=== PATIENT | female | born 1955 | race Caucasian/White ===

== ENCOUNTER → 2018-03-22 | Outpatient (CLI) | payer OTHER, MEDICARE ==
[~2018-03-22] MED LIST: BETA.05TO TOP; Multiple Vitam1 EAC1 PO
[2018-03-24 16:09] LABS: HPV 16 Negative (Negative); HPV 18 Negative (Negative); HPV OTHER HR TYPES Positive (Negative)
== END | disposition home or self-care (01) ==
LOC: LAB 17:01 → LAB SHORT 17:01
PROVIDERS: Nurse Practitioner Women's Health
DX: Z12.4 Encounter for screening for malignant neoplasm of cervix (principal); Z91.89 Other specified personal risk factors, not elsewhere classified
CPT/HCPCS: 87624; 87625; G0123

== ENCOUNTER → 2019-03-27 | Outpatient (CLI) | payer MEDICARE, OTHER ==
[2019-03-29 14:07] LABS: HPV 16 Negative (Negative); HPV 18 Negative (Negative); HPV OTHER HR TYPES Negative (Negative)
== END | disposition home or self-care (01) ==
LOC: LAB 18:17 → LAB SHORT 18:17
PROVIDERS: Nurse Practitioner Women's Health
DX: Z12.4 Encounter for screening for malignant neoplasm of cervix (principal); Z91.89 Other specified personal risk factors, not elsewhere classified
CPT/HCPCS: 87624; G0123

== ENCOUNTER 2022-07-24 14:54 | Inpatient (IN) | payer MEDICARE ==
[~2022-07-24] VITALS: Ht 170.2 cm; Wt 76.2 kg
[2022-07-24 16:04] LABS: Source, Urine Straight Cath
[2022-07-24 16:09] LABS: BASOPHILS ABSOLUTE AUTO 0.02 K/mm3 (0.00-0.23); BASOPHILS PERCENT AUTO 0 % (0-2); EOSINOPHILS ABSOLUTE AUTO 0.02 K/mm3 (0.00-0.68); EOSINOPHILS PERCENT AUTO 0 % (0-6); Hemoglobin 15.9 g/dL (11.5-16.0); IMMATURE GRAN ABSOLUTE AUTO 0.03 K/mm3 (0.00-0.10); IMMATURE GRAN PERCENT AUTO 0 % (0-1); LYMPHOCYTES ABSOLUTE AUTO 0.97 K/mm3 (0.84-5.20); LYMPHOCYTES PERCENT AUTO 11 % (21-46); MONOCYTES ABSOLUTE AUTO 0.72 K/mm3 (0.16-1.47); MONOCYTES PERCENT AUTO 8 % (4-13); Mean Corpuscular HGB 28.3 pg (26.0-34.0); Mean Corpuscular HGB Conc 32.4 g/dL (31.5-36.5); Mean Corpuscular Volume 87 fL (80-100); Mean Platelet Volume 9.7 fL (9.1-12.4); NEUTROPHILS ABSOLUTE AUTO 6.79 K/mm3 (1.96-9.15); NEUTROPHILS PERCENT AUTO 80 % (41-73); Platelet Count 383 K/mm3 (150-400); RDW Coefficient Variation 13.7 % (11.7-14.2); RDW Standard Deviation 43.6 fL (35.1-46.3); Red Blood Cell Count 5.62 M/mm3 (3.80-5.20); White Blood Cell Count 8.55 K/mm3 (4.00-11.30)
[2022-07-24 16:10] LABS: Appearance, Urine Hazy (Clear); Blood, Urine 2+ (Neg); Color, Urine Amber (P-Yellow); Glucose Qualitative, Urine Neg (Neg); Ketones, Urine 4+ (Neg); Leukocyte Esterase, Urine 1+ (Neg); Nitrite, Urine Pos (Neg); Protein, Urine 2+ (Neg); Specific Gravity, Urine 1.025 (1.003-1.022); Urobilinogen, Urine 4+ (Normal)
[2022-07-24 16:19] LABS: Bilirubin, Urine 2+ (Neg)
[2022-07-24 16:22] LABS: Hyaline Casts 0-2 /lpf (0-2); Mucus Heavy (0-Heavy)
[2022-07-24 16:23] LABS: Amorphous Light (0-Heavy); Bacteria Many /hpf; Squamous Epithelial Cells Not Seen /hpf (Few)
[2022-07-24 16:28] LABS: Albumin/Globulin Ratio 0.7 (0.8-1.8); Bilirubin, Total 2.4 mg/dL (0.1-1.0); Bun/Creatinine Ratio 52.6 (12.0-20.0); Calcium, Blood 9.3 mg/dL (8.5-10.1); Creatinine, Blood 0.65 mg/dL (0.40-1.00); Globulin, Blood 4.4 g/dL (2.2-4.0); Potassium, Blood 3.5 mmol/L (3.5-5.5); Total Protein, Blood 7.4 g/dL (6.4-8.2)
[2022-07-24 17:27] LABS: Creatine Kinase MB 2.4 ng/mL (0.0-3.6); Creatine Kinase MB Index 0.5 (0.0-4.0)
[2022-07-24 19:00] LABS: Influenza A, PCR NEGATIVE (NEGATIVE); Influenza B, PCR NEGATIVE (NEGATIVE); Resp Syncytial Virus, PCR NEGATIVE (NEGATIVE); SARS-Cov-2 (COVID-19) PCR, MMC NEGATIVE (NEGATIVE)
[2022-07-24 19:24] LABS: Magnesium, Blood 1.9 mg/dL (1.6-2.4)
[2022-07-24 19:27] LABS: Thyroid Stimulating Hormone 1.61 uIU/mL (0.360-4.800)
[2022-07-25 06:08] LABS: Albumin, Blood 2.3 g/dL (3.4-5.0); Albumin/Globulin Ratio 0.7 (0.8-1.8); Bilirubin, Total 1.5 mg/dL (0.1-1.0); Bun/Creatinine Ratio 42.5 (12.0-20.0); Calcium, Blood 8.6 mg/dL (8.5-10.1); Creatinine, Blood 0.64 mg/dL (0.40-1.00); Globulin, Blood 3.5 g/dL (2.2-4.0); Potassium, Blood 3.3 mmol/L (3.5-5.5); Total Protein, Blood 5.8 g/dL (6.4-8.2)
[2022-07-25 06:40] LABS: Creatine Kinase MB 1.5 ng/mL (0.0-3.6); Creatine Kinase MB Index 0.5 (0.0-4.0)
[2022-07-25 08:08] LABS: Magnesium, Blood 2.1 mg/dL (1.6-2.4)
--- NOTE | 2022-07-25 19:35 | NUR ---
ADMIT NOTE/ SHIFT SUMMARY- PT ALERT TO SELF, FAMILY, ANSWERS MOST QUESTIONS APPROPRIATELY. PT WAS FOUND DOWN ON A WELFARE CHECK CALLED BY HER SISTER IN [place]. PER REPORT FROM THE ED RN THE PT SISTER HAS BEEN CALLING EVERY HOUR FOR AN UPDATE. SINCE ADMIT NO CALLS HAVE BEEN RECIEVED. ADMISSION ASSESSMENT COMPLETED, 2RN SKIN CHECK COMPLETED, PHOTOS IN CHART OF WOUNDS ON COCCYX AND LEFT LABIA. PT WAS AGREEABLE TO PHOTOS FOR THE RECORD. RN GALINA PRESENT FOR THE CONSENT AND 2 RN SKIN CHECK. PT MEDICAL Hx NOT COMPLETED WELL MED REC. NIGHT RN IS AWARE. PT IN BED, CALL LIGHT IN REACH NO S&S OF DISTRESS NOTED. BEDSIDE REPORT COMPLETED WITH NIGHT RN.
--- NOTE | 2022-07-26 04:31 | NUR ---
DISORIENTED X4; AT ONE ASSESSMENT PATIENT RESPONDED THAT SHE KNOWS SHE'S IN A HOSPITAL. UNABLE TO STATE NAME WHEN ASKED. DENIES PAIN. FOLLOWS COMMANDS AND IS GENERALLY COOPERATIVE WITH CARE. BEDREST. Q2 TURN FOR COCCYX REDNESS; FOAM DRSG CDI. INCONTINENT. UNABLE TO COMPLETE MED REC OR HEALTH HX; PATIENT IS A POOR HISTORIAN AT THIS TIME. SLEEP PROMOTED. BED ALARM SET. CALL LIGHT IN REACH; ENCOURAGED TO MAKE NEEDS KNOWN
[2022-07-26 05:34] LABS: BASOPHILS ABSOLUTE AUTO 0.02 K/mm3 (0.00-0.23); BASOPHILS PERCENT AUTO 0 % (0-2); EOSINOPHILS ABSOLUTE AUTO 0.02 K/mm3 (0.00-0.68); EOSINOPHILS PERCENT AUTO 0 % (0-6); Hematocrit 37.8 % (33.0-51.0); IMMATURE GRAN ABSOLUTE AUTO 0.02 K/mm3 (0.00-0.10); IMMATURE GRAN PERCENT AUTO 0 % (0-1); LYMPHOCYTES ABSOLUTE AUTO 0.85 K/mm3 (0.84-5.20); LYMPHOCYTES PERCENT AUTO 15 % (21-46); MONOCYTES ABSOLUTE AUTO 0.37 K/mm3 (0.16-1.47); MONOCYTES PERCENT AUTO 7 % (4-13); Mean Corpuscular HGB 29.1 pg (26.0-34.0); Mean Corpuscular HGB Conc 34.4 g/dL (31.5-36.5); Mean Corpuscular Volume 85 fL (80-100); Mean Platelet Volume 9.4 fL (9.1-12.4); NEUTROPHILS PERCENT AUTO 77 % (41-73); Platelet Count 292 K/mm3 (150-400); RDW Coefficient Variation 13.5 % (11.7-14.2); RDW Standard Deviation 42.2 fL (35.1-46.3); Red Blood Cell Count 4.47 M/mm3 (3.80-5.20); White Blood Cell Count 5.58 K/mm3 (4.00-11.30)
[2022-07-26 06:01] LABS: Bun/Creatinine Ratio 35.6 (12.0-20.0); Calcium, Blood 8.6 mg/dL (8.5-10.1); Creatinine, Blood 0.56 mg/dL (0.40-1.00); Potassium, Blood 3.5 mmol/L (3.5-5.5)
--- NOTE | 2022-07-26 17:13 | NUR ---
SHIFT SUMMARY PT AXO X1, IRRITABLE BUT COOPERATIVE WITH CARE. UP WITH SBA THOUGH PT UNSTEADY AT TIMES. PT CONTINENT/ UNCONTINENT AT TIMES. CONTINENT OF BOWEL WITH 2 LOOSE BROWN STOOL THIS SHIFT. IV PATENT AND SALINE LOCKED. MEPILEX TO COCCYX CDI. NO ACUTE CHANGES THIS SHIFT. PT'S SISTER FROM [place] CALLED AND REQUESTED THAT HOSPITALIST CALL WITH MRI RESULTS TO OMAR ELLIOTT AT [phone]. PT'S SISTER'S NAME IS IRWIN JAY WHOSE NUMBER IS [phone]. BED IN LOW POSITION, CALL LIGHT WITHIN REACH, BED ALARM ON. PHYSICAL THERAPY AND OCCUPATIONAL THERAPY WORKED WITH PATIENT, SEE NOTES.
--- NOTE | 2022-07-27 05:06 | NUR ---
ALERT TO SELF AND PLACE (KNOWS SHE'S IN A HOSPITAL). DENIES PAIN. FOLLOWS COMMANDS /GENERALLY COOPERATIVE WITH CARE. SBA TO BR. Q2 TURN ENCOURAGED FOR COCCYX REDNESS AND WOUND; FOAM DRSG CDI. REFUSING ASSESSMENT OF LEFT LABIA WOUND; BACITRACIN OINTMENT OFFERED - PATIENT DECLINED. SLEEP PROMOTED. BED ALARM SET. CALL LIGHT IN REACH; ENCOURAGED TO MAKE NEEDS KNOWN
--- NOTE | 2022-07-27 17:05 | NUR ---
END OF SHIFT SUMMARY: PATIENT DENIED PAIN DURING THE SHIFT. PATIENT IS IRRITABLE AT TIMES ABOUT HOSPITAL RULES, NOISE, AND OTHER DISCOMFORTS THAT COME WITH BEING ADMITTED. PATIENT ALLOWED ASSESSMENT OF AND CHANGING OF COCCYX DRESSING. PATIENT STEADY ON FEET, BUT DISPLAYS SHORT TERM MEMORY LOSS, BED ALARM ON THROUGHOUT THE SHIFT. PATIENT CALLED APPROPRIATELY. PATIENT WORKED WITH PT AND AMBULATED MULTIPLE TIMES TO THE BATHROOM. NO INCONTINENCE NOTED DURING THE SHIFT. PATIENT REQUESTED PRIVACY AND UNINTERRUPTED REST. PROVIDED PATIENT WITH A QUIET ENVIRONMENT AND WORKED TO ACCOMMODATE REQUESTS. PATIENT CALM AND COOPERATIVE FOR THE MOST PART WITH TIMES OF SARCASTIC, IRRITABLE COMMENTS TO STAFF AND FRIENDS. PATIENT'S FRIEND OMAR REPORTS THAT THIS IS NORMAL FOR HER. PATIENT'S FRIEND OMAR REPORTS THAT SHE WILL BE COMING IN TO TOWN TO HELP THE PATIENT WITH HER STAY HERE AND TRANSITION TO A SAFE DISCHARGE SETTING. HER PHONE NUMBER IS [phone].
--- NOTE | 2022-07-28 07:26 | NUR ---
A/OX3; CONFUSED AT TIMES, THIS SHIFT SHE SAID, "ARE YOU REAL?" TO THIS RN AT [facility] PASS. FORGETFUL. DENIES PAIN. FOLLOWS COMMANDS /GENERALLY COOPERATIVE WITH CARE. SBA TO BR. TURNS SELF IN BED; FOAM DRSG CDI. REFUSING ASSESSMENT OF LEFT LABIA WOUND. CARE CLUSTERED/ SLEEP PROMOTED. BED ALARM SET. CALL LIGHT IN REACH; ENCOURAGED TO MAKE NEEDS KNOWN, DOES NOT CALL APPROPRIATELY.
--- NOTE | 2022-07-28 15:18 | NUR ---
Supportive visit this afternoon. Pt resting in bed upon arrival and denies pain at this time. Engaged in therapeutic discussion regarding advanced care planning. Listened as Pt reports understanding of newly found tumor. She reports no plan to stress. She states that she is not afraid of . Pt reprots only living family members are her brother and sister, both live in [place]. She report her neighbor and friend is supportive and has a friend who lives in [place] who also is supportive. Educated on the importance of planning for the future as disease takes its coarse. Discussed the importance of having support in place whether she pursues treatment or if she decides to pursue hospice. Continued therapeutic listening. Spoke with Primary Rn Emmanuelle and discussed case. Palliative Care will remain available.
--- NOTE | 2022-07-29 05:29 | NUR ---
METAPHYSICS TEACHER SUMMARY: A&Ox3-4. PLEASANT AND COOPERATIVE WITH CARE. CALLS APPROPRIATELY AND ABLE TO COMMUNICATE NEEDS EFFECTIVELY. INDEPENDENT WITHIN ROOM. NO C/O DIZZINESS, HEADACHE OR ATAXIA. VOIDING AND STOOLING WITHOUT DIFFICULTY. NOTED TO BE BRADYCARDIC, WHICH SEEMS TO BE HER BASELINE, ESPECIALLY AT NIGHT. NO ACUTE CONCERNS T/O THE NIGHT. WILL REPORT TO ONCOMING RN.
[2022-07-29] MEDS ORDERED: LEVE500 PO (11:21)
[2022-07-29] MEDS ORDERED: DECADRON4 M1 PO (11:21)
--- NOTE | 2022-07-29 12:03 | NUR ---
DISCHARGE DISCUSSED DISCHARGE WITH PATIENT, PATIENT REPORTS FEELING COMFORTABLE ABOUT DISCHARGE & PLAN. VSS ON RA. PATIENT AMBULATIING WELL SBA TO BATHROOM, MINIMAL NEEDS. EATING, DIRNKNING, & VOIDING W/O DIFFICULTY. PATIENT IS AWAITING RIDE FOR DISCHARGE, STATES RIDE SHOULD BE HERE ABOUT 1300.
--- NOTE | 2022-07-29 12:51 | NUR ---
NO ACUTE CHANGES SINCE ASSUMPTIN OF CARE AT 0700. PATIENT AMBULATING WELL TO BR, SBA. A&O X4. VSS ALTHOUGH STILL BRADYCARDIC. DISCHARGE HAS BEEN DISCUSSED, WAITING FOR PATIENTS RIDE.
--- NOTE | 2022-07-29 16:17 | NUR ---
DISCHARGE [facility] patient [facility] at 1300. Removed IV, site WNL. Patients friend arrived, helped her get dress. Patient left medical floor at 1346.
== END 2022-07-29 13:46 | disposition home health service (06) | DRG 91 ==
LOC: ER 14:54 → MEDS 07-25 00:39 → ERHOLD 07-25 00:39 → MEDS 07-25 17:26
PROVIDERS: Family Medicine; Internal Medicine; Student in an Organized Health Care Education/Training Program; ADMIT Internal Medicine
DX: G92.8 Other toxic encephalopathy (principal); G93.6 Cerebral edema; N39.0 Urinary tract infection, site not specified; E87.0 Hyperosmolality and hypernatremia; M62.82 Rhabdomyolysis; N76.4 Abscess of vulva; R74.01 Elevation of levels of liver transaminase levels; Z51.5 Encounter for palliative care; E87.6 Hypokalemia; R74.8 Abnormal levels of other serum enzymes; E80.6 Other disorders of bilirubin metabolism; I10 Essential (primary) hypertension; E86.0 Dehydration; F10.10 Alcohol abuse, uncomplicated; Z20.822 Contact with and (suspected) exposure to COVID-19; W18.30XA Fall on same level, unspecified, initial encounter; Z98.51 Tubal ligation status; Z98.890 Other specified postprocedural states; Z91.14 Patient's other noncompliance with medication regimen; Z87.891 Personal history of nicotine dependence; Z79.899 Other long term (current) drug therapy
CPT/HCPCS: 0241U; 36415; 51701; 70450; 70553; 80048; 80053; 81001; 82550; 82553; 83735; 84100; 84443; 84484; 85025; 87086; 93005; 93010; 96372-59; 96374; 97116; 97129; 97161; 97165; 99285-25; A9270; A9579; J0696; J1650; J7030; J7120

== ENCOUNTER 2022-09-02 16:08 | Inpatient (IN) | payer MEDICARE, OTHER ==
[~2022-09-02] VITALS: Ht 170.2 cm; Wt 77.1 kg
[~2022-09-02 16:08] MED LIST changes: +DECADRON4 M1 PO; +LEVE500 PO
[2022-09-02 17:01] LABS: BASOPHILS ABSOLUTE AUTO 0.04 K/mm3 (0.00-0.23); BASOPHILS PERCENT AUTO 1 % (0-2); EOSINOPHILS ABSOLUTE AUTO 0.07 K/mm3 (0.00-0.68); EOSINOPHILS PERCENT AUTO 1 % (0-6); Hematocrit 42.6 % (33.0-51.0); Hemoglobin 14.4 g/dL (11.5-16.0); IMMATURE GRAN ABSOLUTE AUTO 0.04 K/mm3 (0.00-0.10); IMMATURE GRAN PERCENT AUTO 1 % (0-1); LYMPHOCYTES ABSOLUTE AUTO 1.49 K/mm3 (0.84-5.20); LYMPHOCYTES PERCENT AUTO 17 % (21-46); MONOCYTES ABSOLUTE AUTO 0.56 K/mm3 (0.16-1.47); MONOCYTES PERCENT AUTO 6 % (4-13); Mean Corpuscular HGB 29.8 pg (26.0-34.0); Mean Corpuscular HGB Conc 33.8 g/dL (31.5-36.5); Mean Corpuscular Volume 88 fL (80-100); Mean Platelet Volume 8.8 fL (9.1-12.4); NEUTROPHILS ABSOLUTE AUTO 6.66 K/mm3 (1.96-9.15); NEUTROPHILS PERCENT AUTO 75 % (41-73); Platelet Count 480 K/mm3 (150-400); RDW Coefficient Variation 14.7 % (11.7-14.2); RDW Standard Deviation 47.1 fL (35.1-46.3); Red Blood Cell Count 4.84 M/mm3 (3.80-5.20); White Blood Cell Count 8.86 K/mm3 (4.00-11.30)
[2022-09-02 17:24] LABS: Albumin, Blood 2.9 g/dL (3.4-5.0); Albumin/Globulin Ratio 0.7 (0.8-1.8); Bilirubin, Total 1.4 mg/dL (0.1-1.0); Bun/Creatinine Ratio 20.2 (12.0-20.0); Calcium, Blood 8.8 mg/dL (8.5-10.1); Creatinine, Blood 0.69 mg/dL (0.40-1.00); Globulin, Blood 4.3 g/dL (2.2-4.0); Potassium, Blood 3.4 mmol/L (3.5-5.5); Total Protein, Blood 7.2 g/dL (6.4-8.2)
[2022-09-02 20:39] LABS: Source, Urine Foley catheter
[2022-09-02 21:01] LABS: Blood, Urine 1+ (Neg); Glucose Qualitative, Urine Neg (Neg); Ketones, Urine 4+ (Neg); Leukocyte Esterase, Urine 1+ (Neg); Nitrite, Urine Pos (Neg); Protein, Urine 2+ (Neg); Specific Gravity, Urine 1.025 (1.003-1.022); Urobilinogen, Urine 3+ (Normal)
[2022-09-02 21:33] LABS: Appearance, Urine Hazy (Clear); Bilirubin, Urine 2+ (Neg); Color, Urine Yellow (P-Yellow)
[2022-09-02 21:36] LABS: Source, Urine Foley catheter
--- NOTE | 2022-09-03 03:57 | NUR ---
SHIFT SUMMARY PATIENT IS ALERT BUT NOT ORIENTATED. 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 PATIENT HAS NOT COMPLAINED OF PAIN, NAUSEA, SOB OR VOMITTING THIS SHIFT. PATIENT IS RESTING COMFORTABLY IN BED AT THIS TIME. BED IN LOCKED AND LOWEST POSITION. VITALS REVIEWED. SEIZURE PADS IN PLACE FOR HX OF SEIZURES.
[2022-09-03 04:44] LABS: BASOPHILS ABSOLUTE AUTO 0.02 K/mm3 (0.00-0.23); BASOPHILS PERCENT AUTO 0 % (0-2); EOSINOPHILS ABSOLUTE AUTO 0.01 K/mm3 (0.00-0.68); EOSINOPHILS PERCENT AUTO 0 % (0-6); Hematocrit 41.8 % (33.0-51.0); Hemoglobin 13.9 g/dL (11.5-16.0); IMMATURE GRAN ABSOLUTE AUTO 0.04 K/mm3 (0.00-0.10); IMMATURE GRAN PERCENT AUTO 0 % (0-1); LYMPHOCYTES ABSOLUTE AUTO 0.77 K/mm3 (0.84-5.20); LYMPHOCYTES PERCENT AUTO 8 % (21-46); MONOCYTES ABSOLUTE AUTO 0.09 K/mm3 (0.16-1.47); MONOCYTES PERCENT AUTO 1 % (4-13); Mean Corpuscular HGB 28.9 pg (26.0-34.0); Mean Corpuscular HGB Conc 33.3 g/dL (31.5-36.5); Mean Corpuscular Volume 87 fL (80-100); Mean Platelet Volume 8.9 fL (9.1-12.4); NEUTROPHILS ABSOLUTE AUTO 8.47 K/mm3 (1.96-9.15); NEUTROPHILS PERCENT AUTO 90 % (41-73); Platelet Count 402 K/mm3 (150-400); RDW Coefficient Variation 14.8 % (11.7-14.2); RDW Standard Deviation 46.5 fL (35.1-46.3); Red Blood Cell Count 4.81 M/mm3 (3.80-5.20)
[2022-09-03 05:16] LABS: Albumin, Blood 2.7 g/dL (3.4-5.0); Albumin/Globulin Ratio 0.7 (0.8-1.8); Calcium, Blood 8.6 mg/dL (8.5-10.1); Creatinine, Blood 0.6 mg/dL (0.40-1.00); Potassium, Blood 4.5 mmol/L (3.5-5.5); Total Protein, Blood 6.7 g/dL (6.4-8.2)
[2022-09-03 11:43] LABS: Bacteria Many /hpf; Red Blood Cells, Urine 0-2 /hpf (0-2); Squamous Epithelial Cells Many /hpf (Few)
[2022-09-03 11:44] LABS: Amorphous Light (0-Heavy); Granular Casts 0-2 /lpf (0); Hyaline Casts 0-2 /lpf (0-2); Mucus Heavy (0-Heavy)
--- NOTE | 2022-09-03 16:50 | NUR ---
SHIFT SUMMARY: PT ALERT AND ORIENTED X2-3. PATIENT ABLE TO STATE NAME, BIRTHDAY, THE HOSPITAL SHE IS IN, THE YEAR, AND THE PRESIDENT. PT PULLED IV AND TOOK TELE OFF DURING SHIFT CHANGE THIS AM. NEW IV IN PT RAC. NS D/C'D DUE TO PT NOW BEING ON A REGULAR DIET. PT TOLERATING DIET WELL. PT IS A ONE PERSON ASSIST WITH TRANSFERS. PT HAS NOT C/O PAIN OR N/V TODAY. FRIEND AT BEDSIDE. AWAITING ROOM AT [facility] IN [place]. CALL LIGHT IN REACH. BED ALARM ON. BED IN LOWEST POSITION. WILL CONTINUE TO MONITOR.
--- NOTE | 2022-09-03 19:45 | NUR ---
SHIFT SUMMARY: PT DISCHARGED AT 1900 [facility] IN [place]. TELE TAKEN OFF. CALLED AND GAVE REPORT TO RN TAKING OVER CARE AT [facility]. CONSENT TO TRANSFER PAPER AND ALL OTHER PAPERWORK SENT WITH PT. PT FRIEND OMAR TO FOLLOW IN CAR BEHIND HER. PT HAD NO COMPLAINTS AT TIME OF TRANSFER.
== END 2022-09-03 18:56 | disposition short-term general hospital (02) | DRG 100 ==
LOC: ER 16:08 → ERHOLD 16:09 → MEDS 16:09
PROVIDERS: Physician Assistant; ADMIT Internal Medicine
DX: G40.89 Other seizures (principal); G93.6 Cerebral edema; N30.00 Acute cystitis without hematuria; G93.49 Other encephalopathy; G93.89 Other specified disorders of brain; I10 Essential (primary) hypertension; E86.0 Dehydration; E87.6 Hypokalemia; Z20.822 Contact with and (suspected) exposure to COVID-19
CPT/HCPCS: 36415; 51701; 70450; 80053; 81001; 81015; 83880; 85025; 87086; 96361; 96365-59; 96367; 96375-59; 96376; 99285-25; G0378; J0696; J1100; J1953; J3480; J7030; J7050